=== PATIENT | female | born 1965 | race Caucasian/White ===

== ENCOUNTER 2021-02-05 10:02 | Emergency (ER) | payer BC, SELFPAY ==
[2021-02-05 10:13] VITALS: BP 148/85; PULSE 89; RESP 16; TEMP 36.6; O2SAT 100
--- NOTE | 2021-02-05 10:22 | ED.EYEPROB ---
HPI - Eye Problem General Chief complaint: Eye Problems Stated complaint: EYE REDNESS Time Seen by Provider: 02/05/21 10:11 Source: patient and RN notes reviewed Mode of arrival: ambulatory Limitations: no limitations History of Present Illness HPI Narrative: Patient presents today complaining of left eye irritation, redness, and drainage. Irritation and green drainage started yesterday, redness started this morning. Denies pain. She has been using Pataday drops with some relief. Denies vision changes. MD chief complaint: eye redness Related Data Home Medications Medication Instructions Recorded Confirmed escitalopram oxalate 10 mg PO DAILY 03/09/19 12/27/20 letrozole 2.5 mg PO DAILY 03/09/19 12/27/20 Allergies Allergy/AdvReac Type Severity Reaction Status Date / Time Sulfa (Sulfonamide Allergy Unknown Rash Verified 12/27/20 08:56 Antibiotics) Review of Systems Review of Systems: CONSTITUTIONAL: Denies body aches, fever, chills, or sweats. EYES: Denies visual changes. + Left eye redness, irritation, drainage ENT: Denies rhinorrhea, congestion, sore throat, or otalgia. CARDIOVASCULAR: Denies chest pain, palpitations, or edema. RESPIRATORY: Denies cough or dyspnea. GASTROINTESTINAL: Denies abdominal pain, nausea, vomiting, or diarrhea. GENITOURINARY: Denies dysuria or hematuria. SKIN: Denies rash, itching, or wounds. MUSCULOSKELETAL: Denies back pain, joint pain, or myalgia. NEUROLOGIC: Denies headache, numbness, tingling, or weakness. PSYCH: Denies depression or anxiety. PMFSH Family History Family History Mother Hypertension Social History Social History Smoking status: Never smoker Second hand tobacco smoke exposure: Yes Alcohol intake: never Substance use: never Gender identity (if verbalized by the patient): Female Comments At time of signature, I have reviewed and agree with nursing past medical, surgical, social and family history unless otherwise noted. Please see nursing chart for further information. There is no relevant family history pertinent to the presenting complaint Exam Narrative: GENERAL: Well-appearing, well-nourished, and in no acute distress. HEAD: Normocephalic, atraumatic. EYES: EOMI. PERRL. Left eye: Mildly injected conjunctiva with subconjunctival hemorrhage laterally, likely from itching the eye. No active drainage. Lids and lashes normal. Right eye normal ENT: Mucous membranes pink and moist. NECK: Normal AROM. CHEST: No respiratory distress. EXTREMITIES: Normal range of motion. No edema. SKIN: Warm, dry, no rash. Capillary refill normal. Normal skin turgor. NEURO: No focal deficits. Alert and oriented x3. Gait steady. PSYCH: Normal affect. No signs of depression or anxiety. Course Vital Signs Vital signs: Vital Signs Temperature 97.8 F 02/05/21 10:13 Pulse Rate 89 02/05/21 10:13 Respiratory Rate 16 02/05/21 10:13 Blood Pressure 148/85 H 02/05/21 10:13 Pulse Oximetry 100 02/05/21 10:13 Temperature 97.8 F 02/05/21 10:13 Pulse Rate 89 02/05/21 10:13 Respiratory Rate 16 02/05/21 10:13 Blood Pressure 148/85 H 02/05/21 10:13 Pulse Oximetry 100 02/05/21 10:13 Reviewed. Pt has been instructed to follow up with her PCP regarding her elevated blood pressure today. MDM - Eye Problem Differential Diagnosis Differential diagnosis: Likely conjunctivitis, periorbital cellulitis and subconjunctival hemorrhage Critical Care Time Critical Care Time Critical Care Time: No Discharge Plan Discharge Clinical Impression: Acute bacterial conjunctivitis of left eye Subconjunctival hemorrhage Qualifiers: Laterality: left Qualified Code(s): H11.32 - Conjunctival hemorrhage, left eye Patient Disposition: Home, Self-Care Condition: Stable Instructions: Subconjunctival Hemorrhage (ED), Conjunc
== END 2021-02-05 10:37 | disposition home or self-care (01) ==
PROVIDERS: Emergency Provider Nurse Practitioner; PCP Family Medicine
DX: H10.32 Unspecified acute conjunctivitis, left eye (principal); H11.32 Conjunctival hemorrhage, left eye; I10 Essential (primary) hypertension; Z85.3 Personal history of malignant neoplasm of breast
CPT/HCPCS: 99213; G0463

== ENCOUNTER 2021-02-10 15:41 | Emergency (ER) | payer BC, SELFPAY ==
--- NOTE | 2021-02-10 15:44 | ED.ABDPAIN ---
HPI - Abdominal Pain General Chief Complaint: Abdominal Pain Stated Complaint: abdominal pain/diarrhea Time Seen by Provider: 02/10/21 15:44 Source: patient and RN notes reviewed History of Present Illness HPI narrative: Patient is a 55-year-old female who presents the urgent care with complaints of abdominal cramping and diarrhea. Patient states is been persistent since Wednesday and she has tried Pepto-Bismol as well as Imodium [id number] without relief. Patient states that she has had intermittent nausea but currently denies of any nausea or vomiting. Denies of any known fevers. States that she does have a history of colitis but this is much worse than her colitis flares in the past . Denies of any blood in the stool. States that she is going approximately 5 or 6 times per day. States that she did call her doctor and they have not called her back. No other acute complaints. No acute distress noted. Patient aware of the plan of care. Some parts of this dictation were generated by voice recognition software and may contain typographical and/or grammatical inaccuracies. Related Data Home Medications Medication Instructions Recorded Confirmed escitalopram oxalate 10 mg PO DAILY 03/09/19 12/27/20 letrozole 2.5 mg PO DAILY 03/09/19 12/27/20 Allergies Allergy/AdvReac Type Severity Reaction Status Date / Time Sulfa (Sulfonamide Allergy Unknown Rash Verified 12/27/20 08:56 Antibiotics) Review of Systems Review of Systems: CONSTITUTIONAL: Denies fever, chills, or sweats. EYES: Denies visual changes, redness, or discharge. ENT: Denies rhinorrhea, congestion, sore throat, or otalgia. CARDIOVASCULAR: Denies chest pain, palpitations, or edema. RESPIRATORY: Denies cough or dyspnea. GASTROINTESTINAL: Reports of intermittent nausea with abdominal cramping and diarrhea GENITOURINARY: Denies dysuria or hematuria. SKIN: Denies rash or itching. MUSCULOSKELETAL: Denies back pain, joint pain, or myalgia. NEUROLOGIC: Denies headache, numbness, or weakness. All other systems reviewed are negative, except as documented in HPI. [facility] Family History Family History Mother Hypertension Social History Social History Smoking status: Never smoker Second hand tobacco smoke exposure: Yes Alcohol intake: never Substance use: never Gender identity (if verbalized by the patient): Female Comments At the time of my signature, I reviewed and agree with the nursing past medical, surgical, social, and family history. There is no relevant family history pertinent to the patient complaint. Exam Narrative: GENERAL: This is a well-nourished, well-developed patient, in no apparent distress. HEAD: normocephalic, atraumatic. EYES: PERRL. Sclera clear/white. Vision is grossly intact. EARS: External ears normal NOSE: External nose normal with no obvious nasal discharge, nares without redness, no rhinorrhea. THROAT: Mucous membranes moist NECK: Neck supple CARDIOVASCULAR: Regular rate and rhythm without murmurs, gallops, or rubs. RESPIRATORY: Clear to auscultation. Breath sounds equal bilaterally. No wheezes, rales, or rhonchi. GASTROINTESTINAL: Abdomen soft, upper left quadrant tenderness, nondistended. Bowel sounds are active. No guarding. SKIN: warm, intact with no suspicious lesions or rash, good texture and turgor. NEURO: awake, alert, and oriented to person, place and time. There were no obvious focal neurologic abnormalities. EXTREMITIES: No clubbing, cyanosis, or edema. Course Vital Signs Vital signs: Vital Signs Temperature 97.5 F L 02/10/21 15:47 Pulse Rate 100 02/10/21 15:47 Respiratory Rate 16 02/10/21 15:47 Blood Pressure 129/83 02/10/21 15:47 Pulse Oximetry 100 02/10/21 15:47 Temperature 97.5 F L 02/10/21 15:47 Pulse Rate 100 02/10/21 15:47 Respiratory Rate 16 02/10
[2021-02-10 15:47] VITALS: BP 129/83; PULSE 100; RESP 16; TEMP 36.4; O2SAT 100
== END 2021-02-10 16:15 | disposition short-term general hospital (02) ==
PROVIDERS: Emergency Provider Nurse Practitioner Family; PCP Family Medicine
DX: R10.12 Left upper quadrant pain (principal); R19.7 Diarrhea, unspecified
CPT/HCPCS: 81003; 99212; G0463

== ENCOUNTER → 2021-09-25 13:43 | Outpatient (CLI) | payer BC, SELFPAY ==
--- NOTE | ~2021-09-25 | US_ITS ---
EXAMINATION: US pelvic complete DATE: 09/25/2021 14:13 INDICATION: Right ovarian lesion Comparison:No prior studies for comparison. TECHNIQUE: Multiple transabdominal sonographic images of the pelvis performed. FINDINGS: The uterus measures 5.7 x 2.5 x 3.4 cm. The endometrial complex measures 3 mm. The right ovary measures 2.1 x 1.9 x 1.9 cm. There is a 1.4 cm right ovarian cyst. The left ovary is not identified. There are small follicles in each ovary. Normal doppler signal in both ovaries. There is no free fluid in the pelvis. There are no abnormal masses seen on either side. IMPRESSION: 1. Right ovarian cyst measuring 1.4 cm. Reviewed, dictated and finalized at location A.
== END ==
PROVIDERS: PCP Family Medicine; Visit Provider Nurse Practitioner Family
DX: N83.9 Noninflammatory disorder of ovary, fallopian tube and broad ligament, unspecified (principal); N83.201 Unspecified ovarian cyst, right side
CPT/HCPCS: 76856

== ENCOUNTER 2023-07-09 10:02 | Outpatient (CLI) | payer OTHER, SELFPAY ==
--- NOTE | ~2023-07-09 | XR_ITS ---
Clinical Indication: Cough PA and lateral views of the chest: Comparison: None Findings: The lungs are clear, without evidence of focal consolidation or pleural effusion. Cardiome diastinal silhouette is within normal limits. Bones and soft tissues are unremarkable. Impression: Normal chest. Reviewed, dictated and finalized at [facility]. [employer] Impression: Normal chest.
[2023-07-09 10:58] LABS: Influenza A QL RT-PCR Negative (Negative); Influenza B QL RT-PCR Negative (Negative); RSV RNA, RT-PCR Negative (Negative); SARS-CoV-2 RNA PCR Negative (Negative)
== END 2023-07-09 10:03 | disposition home or self-care (01) ==
LOC: ANHLAB 10:06
PROVIDERS: PCP Family Medicine; Visit Provider Physician Assistant
DX: R05.9 Cough, unspecified (principal); R06.02 Shortness of breath; Z20.822 Contact with and (suspected) exposure to COVID-19; Z85.3 Personal history of malignant neoplasm of breast
CPT/HCPCS: 71046; 87637